=== PATIENT | male | born 1950 | race Two or more races ===

== ENCOUNTER 2021-12-15 13:16 | Emergency (ER) | payer MEDICARE, OTHER ==
[~2021-12-15] VITALS: Ht 170.2 cm; Wt 76.2 kg
--- NOTE | 2021-12-15 13:19 | NUR ---
TO ER BED 11, BIBRA 62 FROM HOME C/O R SHOULDER PAIN S/P SLIP AND FALL. DENIES LILIA, AAOX3, BREATHING EVEN AND NON LABORED, CONNECTED TO MONITOR, AWAITING MD DASILVA
--- NOTE | 2021-12-15 13:39 | NUR ---
DR GILMAN AT BEDSIDE
[2021-12-15] MEDS ORDERED: FENTANYL PF 100MCG/2ML AMPUL ONE (14:57)
[2021-12-15] MEDS ORDERED: FENTANYL PF 100MCG/2ML AMPUL IV ONE (15:00)
[2021-12-15] MEDS ORDERED: OXYC5TAB3 PO (15:04)
--- NOTE | 2021-12-15 17:15 | NUR ---
IV removed. Catheter intact and site benign. Pressure and 4x4 applied to site. No bleeding noted. Patient discharged to home in stable condition. Written and verbal after care instructions given. Patient verbalizes understanding of instruction.
[2021-12-15 17:16] VITALS: BP 130/69
--- NOTE | 2021-12-15 17:16 | NUR ---
Patient discharged to home in stable condition. Written and verbal after care instructions given. Patient verbalizes understanding of instruction.
== END 2021-12-15 17:16 | disposition home or self-care (01) ==
LOC: ER 13:22
DX: S42.291A Other displaced fracture of upper end of right humerus, initial encounter for closed fracture (principal); M43.12 Spondylolisthesis, cervical region; I10 Essential (primary) hypertension; Z87.39 Personal history of other diseases of the musculoskeletal system and connective tissue; Z79.899 Other long term (current) drug therapy; W01.0XXA Fall on same level from slipping, tripping and stumbling without subsequent striking against object, initial encounter; Y93.89 Activity, other specified; Y92.89 Other specified places as the place of occurrence of the external cause; Y99.8 Other external cause status
CPT/HCPCS: 29105; 70450; 72125; 73030; 96374; 99284; J3010